=== PATIENT | male | born 1995 | race Caucasian/White ===

== ENCOUNTER 2016-12-13 02:05 | Emergency (ER) | payer SELFPAY ==
[~2016-12-13] VITALS: Ht 172.7 cm; Wt 80.0 kg
[~2016-12-13 02:05] MED LIST: BEN25 PO; CEPH-443 PO; PRED50TA PO
[2016-12-13 02:14] VITALS: Ht 172.7 cm; Wt 80.0 kg
== END 2016-12-13 05:39 | disposition left against medical advice (07) ==
LOC: FTE 02:05
DX: Z53.21 Procedure and treatment not carried out due to patient leaving prior to being seen by health care provider (principal)